=== PATIENT | female | born 1935 | race Caucasian/White ===

== ENCOUNTER 2018-05-22 19:16 | Emergency (ER) | payer MEDICARE ==
--- NOTE | 2018-05-22 21:41 | Emergency Department Record ---
History of Present Illness - General Chief complaint: Head Injury Stated complaint: HEAD INJURY/FALL Time Seen by Provider: 05/22/18 19:57 Source: Patient, Family Mode of Arrival: Ambulatory Limitations: No limitations Travel/Exposure to [facility] Within 21 Days of Symptoms: No - History of Present Illness Initial comments: 83 yo female presents with some intermittent headache since she fell out of bed about 20 hours prior to arrival. She was reaching for her light while in the dark in bed and fell to the floor hitting her head. No LOC. She has had some mild neck pain with looking down and some headache that comes and goes but is gone at this time. No confusion, dizziness, nausea, vomiting, weakness. She is not on any anticoagulants. No other injuries or complaints at this time. MD Complaint: Head injury, Head pain Onset/Timin -: Days(s) Mechanism of Injury: Mechanical fall Loss of Consciousness: No Previous Trauma to this Area: No Place: Home Radiation: None Severity: Mild Severity scale (1-10): 4 Quality: Aching Consistency: Intermittent Provoking factors: None known Other Injuries: None Associated Symptoms: Denies other symptoms - Related Data Home Medications Medication Instructions Recorded Confirmed Last Taken Naproxen Sodium [Aleve] 220 mg PO DAILY 05/22/18 05/22/18 Unknown Previous Rx's Medication Instructions Recorded Aspirin [Ecotrin] 325 mg PO DAILY #0 05/19/15 Allergies/Adverse reactions: Allergies Allergy/AdvReac Type Severity Reaction Status Date / Time sulfamethoxazole Allergy Mild HEADACHE Verified 03/28/15 14:49 trimethoprim [From Bactrim] Allergy Mild HEADACHE Verified 03/28/15 14:49 losartan potassium AdvReac Severe RAPID Verified 03/28/15 14:49 [From Cozaar] HEART RATE ibuprofen [From Motrin] AdvReac Unknown PT UNSURE Verified 03/28/15 14:49 OF REACTION Travel Screening - Travel/Exposure Within Last 30 Days Have you traveled within the last 30 days?: No - Travel Symptoms Symptom Screening: None Review of Systems Constitutional: Denies: Chills, Fever, Malaise, Weakness Eyes: Denies: Eye discharge, Eye pain, Photophobia, Vision change ENT: Denies: Congestion, Throat pain Respiratory: Denies: Cough, Dyspnea Cardiovascular: Denies: Chest pain, Edema, Palpitations, Syncope Endocrine: Denies: Fatigue Gastrointestinal: Denies: Abdominal pain, Diarrhea, Nausea, Vomiting Musculoskeletal: Reports: Neck pain. Denies: Arthralgia, Back pain, Joint swelling, Myalgia Skin: Denies: Bruising, Change in color, Rash Neurological: Reports: Headache. 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) Comment:: according to 05/19/15 CT scan - GI Hx GI Disorders: Yes Hx Reflux: Yes Comment:: stool sample positive for blood - Hx Genitourinary Disorders: No Comment:: Benign Kidney tumor removed - ENDOCRINE Hx Endocrine Disorders: No - MUSCULOSKELETAL Hx Musculoskeletal Disorders: Yes Hx Osteoporosis: Yes - PSYCH Hx Psych Problems: No - HEMATOLOGY/ONCOLOGY Hx Hematology/Oncology Disorders: Yes Hx Bruising: Yes (Recently changed medications) Hx Cancer: Yes (melanoma knee) Hx Chemotherapy: No Hx Radiation Therapy: No Hx Blood Transfusions: No Family Medical History Any Significant Family History?: Yes Hx Alcohol Use: Father Hx Anxiety: Mother Hx Cancer: Mother *Cancer Comment: Bowel cancer Hx Diabetes: Father Hx Heart Disease: Father, Mother Hx Stroke: Father, Mother, Grandparents Physical Exam - General General Appearance: Alert, Oriented x3, Cooperative, No acute distress Limitations: No limitations - Head Head exam: Atraumatic, Normal inspection Head exam detail: negative: Abrasion, Contusion, Hematoma - Eye Eye exam: Normal appearance, Other (Disconjugate gaze). negative: Conjunctival injection - ENT ENT exam: Normal exam, Mucous membranes moist Ear exam: Normal external inspection Nasal Exam: Normal inspection Mouth exam: Normal external inspection Teeth exam: Normal inspection - Neck Neck exam: Normal inspection, Full ROM, Other (No bony tenderness). negative: Lymphadenopathy, Tenderness - Respiratory Respiratory exam: Normal lung sounds bilaterally. negative: Respiratory distress, Rhonchi, Stridor, Wheezes - Cardiovascular Cardiovascular Exam: Regular rate, Normal rhythm, Normal heart sounds - GI/Abdominal GI/Abdominal exam: Soft. negative: Tenderness - Rectal Rectal exam: Deferred - exam: Deferred - Extremities Extremities exam: Normal inspection, Full ROM, Normal capillary refill. negative: Calf tenderness, Joint swelling, Pedal edema, Tenderness - Back Back exam: Denies: CVA tenderness (R), CVA tenderness (L), Paraspinal tenderness , Tenderness, Vertebral tenderness - Neurological Neurological exam: Alert, Normal gait, Oriented X3. negative: Abnormal gait - Psychiatric Psychiatric exam: Normal affect, Normal mood - Skin Skin exam: Dry, Intact, Normal color, Warm Course Vital Signs 05/22/18 05/22/18 19:38 19:52 Temperature 97.4 F L Pulse Rate [ 79 Pulse Ox Probe] Respiratory 16 Rate Blood Pressure 178/99 [Left Arm] Pulse Ox 100 - Reevaluation(s) Reevaluation #1: Vitals reviewed She is well appearing We discussed CT scan given the headache after the fall and the mild neck pain after the fall 05/22/18 21:[address] scan was reviewed Degenerative changes but no acute injury 05/22/18 21:[address] was negative 05/22/18 21:44 Disposition Disposition: Discharge Clinical Impression: Contusion of head Disposition: Home, Self-Care Condition: (1) Good Instructions: Concussion (ED) Additional Instructions: Return or be seen if you have headaches, dizziness, nausea or vomiting Follow up this ER visit with your doctor if you have an persistent pains or concerns Forms: Patient Portal Access Time of Disposition: 21:43 Quality - Quality Measures Quality Measures: N/A, Blunt Head Trauma (>2yr) - Genesis Coma Scale Genesis Coma Scale: [place] Coma Scale Eye Response: (4) Open spontaneously Motor Response: (6) Obeys commands Verbal Response: (5) Oriented [place] Total: 15 - Blunt Head Trauma - Adult Quality Measure: Measure #415: Utilization of CT for Minor Blunt Head Trauma ICD10 Codes Entered: Yes Was CT ordered: Yes Does Patient Have Any of the Following: No Exclusions Patient Presented Within 24 Hours of Injury: Yes [place] Score: [address] for Minor Blunt Head Trauma: < CT Done, Appropriate Indication > [G9529] Additional Inclusion Criteria: Within 24hrs (AND) GCS of 15 (AND) CT ordered. [ G9530] Indications For CT: Age 65 Years and Older - Blood Pressure Screening Does Patient Have Any of the Following: No Blood Pressure Classification: Pre-Hypertensive BP Reading Systolic Measurement: 152 Diastolic Measurement: 85 Screening for High Blood Pressure: < Pre-Hypertensive BP, F/U Documented > [ G8950] Pre-Hypertensive Follow-up Interventions: Referral to alternative/primary care provider.
--- NOTE | 2018-05-24 12:26 | CT SCAN REPORT ---
EXAM: CT OF THE HEAD WITHOUT IV CONTRAST HISTORY: FALL. TECHNIQUE: Helical CT scan of the brain was obtained without intravenous contrast. Comparison: CT of the head 05/18/15. Hand dominance: Unknown. FINDINGS: Moderate periventricular and deep white matter low density changes are again seen with slight progression in the interim. No evidence of hemorrhage, extraaxial fluid collection, or major vessel infarction. The martinez white matter differentiation is maintained. The ventricles are normal. The basal cisterns are patent. No mass effect or midline shift. The calvarium is intact. The paranasal sinuses and middle ear cavities are well aerated. IMPRESSION: NO ACUTE INTRACRANIAL ABNORMALITIES. THERE IS SLIGHT PROGRESSION OF THE MICROVASCULAR ISCHEMIC DISEASE SINCE THE 2015 EXAM. JOB NUMBER: [id number] MTDD
--- NOTE | 2018-05-24 12:30 | CT SCAN REPORT ---
EXAM: CT OF THE CERVICAL SPINE WITHOUT IV CONTRAST HISTORY: FALL. TECHNIQUE: Helical CT scan of the cervical spine was obtained without intravenous contrast. Comparison: None. Encounter: Initial. FINDINGS: Sagittal images show mild reversal of the cervical lordosis at C5-C6 and C6-C7. The vertebral body heights are maintained. There is no anterior or posterior listhesis. Severe disk space narrowing is present at C7-T1. Moderate disk space narrowing at C4-C5, C5-C6, and C6-C7. There are diskogenic osteophytes, but no significant neural foraminal narrowing. No prevertebral soft tissue swelling. The facet joints are aligned normally. The coronal images show a normal C1-C2 relationship. Axial images show no fractures. IMPRESSION: NO EVIDENCE FO FRACTURE OR MALALIGNMENT OF THE CERVICAL SPINE. MODERATE DEGENERATIVE CHANGES ARE NOTED. JOB NUMBER: [id number] MTDD
== END 2018-05-22 21:56 | disposition home or self-care (01) ==
LOC: ER 19:16
DX: S09.93XA Unspecified injury of face, initial encounter (principal); R51 Headache; M54.2 Cervicalgia; W06.XXXA Fall from bed, initial encounter; Y92.003 Bedroom of unspecified non-institutional (private) residence as the place of occurrence of the external cause; I10 Essential (primary) hypertension
CPT/HCPCS: 70450; 72125; 99283; 99284

== ENCOUNTER 2018-08-23 19:55 | Emergency (ER) | payer MEDICARE ==
--- NOTE | 2018-08-23 20:11 | Emergency Department Record ---
History of Present Illness - General Chief Complaint: General Stated Complaint: SHAKEY LEGS AND BALANCE OFF Time Seen by Provider: 08/23/18 19:59 Source: Patient, Family Mode of Arrival: Ambulatory Limitations: No limitations - History of Present Illness Initial Comments: 83 yo female presents with a few episodes the last two days of a vague feeling of dizziness. The first episode was last evening after dinner. She felt normal by bed time. The sensation was feeling weak and shaky on her feet. The symptoms lasted over about two hours. She vaguely felt weak this morning but then had a normal remainder of the day. Around 7pm she again felt weak like her legs were not strong. No weakness on one side or the other. No headache, speech changes, hearing changes, vision changes, neck pain, chest pain, palpitations, nausea or vomiting. She walked 3/4 of a mile yesterday without any difficulty. No new health changes. No new medications. PCP is Dr Null. Complaint: Dizziness -: Days(s) (2) Timing: Gradual onset Description: Difficulty walking History of Same: No History of Trauma: No Severity: Mild Improves With: Remaining still, Rest Worsens With: Movement Associated Symptoms: Denies other symptoms - Genesis Coma Scale Eye Response: (4) Open spontaneously Motor Response: (6) Obeys commands Verbal Response: (5) Oriented [place] Total: 15 - Related Data Previous Rx's Medication Instructions Recorded Aspirin [Ecotrin] 325 mg PO DAILY #0 05/19/15 Allergies Allergy/AdvReac Type Severity Reaction Status Date / Time sulfamethoxazole Allergy Mild HEADACHE Verified 03/28/15 14:49 trimethoprim [From Bactrim] Allergy Mild HEADACHE Verified 03/28/15 14:49 losartan potassium AdvReac Severe RAPID Verified 03/28/15 14:49 [From Cozaar] HEART RATE ibuprofen [From Motrin] AdvReac Unknown PT UNSURE Verified 03/28/15 14:49 OF REACTION Review of Systems Constitutional: Reports: Weakness. Denies: Chills, Fever, Malaise, Night sweats Eyes: Denies: Eye discharge, Eye pain, Photophobia, Vision change ENT: Denies: Congestion, Dental pain, Epistaxis, Throat pain Respiratory: Denies: Cough, Dyspnea, Hemoptysis, Wheezes Cardiovascular: Denies: Chest pain, Dyspnea on exertion, Edema, Palpitations, Syncope Endocrine: Denies: Fatigue, Polydipsia, Polyuria Gastrointestinal: Denies: Abdominal pain, Diarrhea, Nausea, Vomiting Genitourinary: Denies: Dysuria, Retention, Urgency Musculoskeletal: Denies: Arthralgia, Back pain, Joint swelling, Myalgia Skin: Denies: Bruising, Change in color, Rash Neurological: Reports: As per HPI, Abnormal gait, Tingling (tumb on the right for a few "seconds"), Vertigo, Weakness. Denies: Confusion, Headache, Numbness , Paresthesias, Seizure, Tremors Psychiatric: Reports: Anxiety (The symptoms make her feel very anxious) Hematological/Lymphatic: Denies: Anemia, Blood Clots, Easy bleeding, Easy bruising, Swollen glands Past Medical History - SOCIAL HISTORY Smoking Status: Never smoker - RESPIRATORY Hx Respiratory Disorders: No - CARDIOVASCULAR Hx Cardio Disorders: Yes Hx Abnormal EKG: Yes Hx Cardiac Cath: Yes (Believes over 5yrs ago) Hx Heart Attack: No Hx Hypertension: Yes Hx Irregular Heartbeat: Yes ("not a-fib") Hx Palpitations: No Comment:: Vericose veins - NEURO Hx Neuro Disorders: Yes 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) Comment:: according to 05/19/15 CT scan - GI Hx GI Disorders: Yes Hx Reflux: Yes Comment:: stool sample positive for blood - Hx Genitourinary Disorders: No Comment:: Benign Kidney tumor removed - ENDOCRINE Hx Endocrine Disorders: No - MUSCULOSKELETAL Hx Musculoskeletal Disorders: Yes Hx Osteoporosis: Yes - PSYCH Hx Psych Problems: No - HEMATOLOGY/ONCOLOGY Hx Hematology/Oncology Disorders: Yes Hx Bruising: Yes (Recently changed medications) Hx Cancer: Yes (melanoma knee) Hx Chemotherapy: No Hx Radiation Therapy: No Hx Blood Transfusions: No Family Medical History Hx Alcohol Use: Father Hx Anxiety: Mother Hx Cancer: Mother *Cancer Comment: Bowel cancer Hx Diabetes: Father Hx Heart Disease: Father, Mother Hx Stroke: Father, Mother, Grandparents Physical Exam - General General Appearance: Alert, Oriented x3, Cooperative, No acute distress Limitations: No limitations - Head Head exam: Atraumatic, Normocephalic, Normal inspection Head exam detail: negative: Abrasion, Contusion, Hematoma, Laceration - Eye Eye exam: Normal appearance, PERRL, EOMI, Other (Baseline disconjugate gaze, normal). negative: Conjunctival injection, Nystagmus, Periorbital swelling, Periorbital tenderness, Scleral icterus Pupils: Normal accommodation. negative: Irregular, Miosis, Unequal - ENT ENT exam: Normal exam, Mucous membranes moist, Normal orophraynx, TM's normal bilaterally Ear exam: Normal external inspection Nasal Exam: Normal inspection Mouth exam: Normal external inspection Teeth exam: Normal inspection Throat exam: Normal inspection - Neck Neck exam: Normal inspection, Full ROM. negative: Lymphadenopathy, Tenderness - Respiratory Respiratory exam: Normal lung sounds bilaterally. negative: Respiratory distress, Rhonchi, Stridor, Wheezes - Cardiovascular Cardiovascular Exam: Regular rate, Normal rhythm, Normal heart sounds. negative : Diastolic murmur, Systolic murmur, Tachycardia Peripheral Pulses: 2+: Radial (R), Radial (L) - GI/Abdominal GI/Abdominal exam: Soft. negative: Tenderness - Rectal Rectal exam: Deferred - exam: Deferred - Extremities Extremities exam: Normal inspection, Full ROM, Normal capillary refill. negative: Calf tenderness, Joint swelling, Pedal edema, Tenderness - Back Back exam: Denies: CVA tenderness (R), CVA tenderness (L) - Neurological Neurological exam: Alert, CN II-XII intact, Oriented X3, Reflexes normal, Other (Normal finger to nose, normal tracking, no ataxia, symmetric strength, no PND upper or lower). negative: Altered, Motor sensory deficit - Psychiatric Psychiatric exam: Normal affect, Normal mood. negative: Agitated, Anxious - Skin Skin exam: Dry, Intact, Normal color, Warm Course Vital Signs 08/23/18 20:01 Temperature 97.6 F Pulse Rate [ 92 H Pulse Ox Probe] Respiratory 20 Rate Blood Pressure 163/92 [Left Arm] Pulse Ox 99 - Reevaluation(s) Reevaluation #1: EKG 20:09 NSR rate is 80 Intervals Normal [place] L ST no acute changes, LVH criteria NIH is 0 08/23/18 20:23 The EMR was reviewed. 2014 she was admitted for 10 minutes of confusion. MRI at that time was negative for acute CVA. 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 08/23/18 20:45 08/23/18 20:55 The CBC and CMP were reviewed. No significant changes. The Troponin is normal 08/23/18 20:57 The patient was ambulatory to the restroom without limitation. 08/23/18 21:13 The HCT was negative for any acute process or changes from the prior 08/23/18 21:14 The UA is negative for any infection or acute changes 08/23/18 21:22 The patient is ambulating at baseline. NIH is 0. No objective signs of acute neurologic event She has follow up tomorrow already scheduled. She was offered OBV but prefers to go home and see her doctor tomorrow She was given home care instructions and reasons to return to the ER immediately. Medical Decision Making - Lab Data Result diagrams: 08/23/18 20:25 08/23/18 20:25 Disposition Disposition: Discharge Clinical Impression: Dizziness Disposition: Home, Self-Care Condition: (1) Good Instructions: Dizziness (ED) Additional Instructions: Follow up as scheduled tomorrow with Dr Tennille Mccall if your symptoms sudden return or worsen I recommend if you get up in the night to walk with assistance Forms: Patient Portal Access Time of Disposition: 21:24 Quality - Quality Measures Quality Measures: N/A - Blood Pressure Screening Does Patient Have Any of the Following: Active Dx of HTN Blood Pressure Classification: Hypertensive Reading Systolic Measurement: 154 Diastolic Measurement: 90 Screening for High Blood Pressure: Patient Exclusion, Hx of HTN [G9744]
[2018-08-23 20:32] LABS: HEMATOCRIT 37.5 % (35.0-47.0); HEMOGLOBIN 12.3 gm/dl (11.6-16.0); MEAN CELL VOLUME 93.3 fl (81-97); MEAN CORPUSCULAR HEMOGLOBIN 30.6 pg (27-33); MEAN CORPUSCULAR HGB CONC 32.8 g/dl (32-36); MEAN PLATELET VOLUME 9.9 fl (7.4-10.4); PLATELET COUNT 244 K/uL (130-400); RED BLOOD COUNT 4.02 M/uL (3.80-5.40); RED CELL DISTRIBUTION WIDTH 12.7 % (11.5-14.5); WHITE BLOOD COUNT W/O DIFF 4.7 K/uL (4.2-12.2)
[2018-08-23 20:41] LABS: BLOOD UREA NITROGEN 22 mg/dL (8-23); CREATININE 0.6 mg/dL (0.5-0.9); EST GLOMERULAR FILTRATION RATE > 60 mL/min
[2018-08-23 20:42] LABS: TOTAL PROTEIN 7.3 g/dL (6.6-8.7)
[2018-08-23 20:44] LABS: GLUCOSE,RANDOM 86 mg/dL (74-109)
[2018-08-23 20:47] LABS: ALB/GLOB RATIO 1.5 (1.1-1.8); ALBUMIN 4.4 g/dL (4.0-5.0); ALKALINE PHOSPHATASE 85 U/L (35-104); ALT/SGPT 51 U/L (<33); AST/SGOT 41 U/L (10.0-35.0)
[2018-08-23 20:51] LABS: PLATELET ESTIMATE NORMAL (NORMAL)
[2018-08-23 21:08] LABS: URINE APPEARANCE SL CLOUDY; URINE BILIRUBIN NEGATIVE (NEGATIVE); URINE BLOOD NEGATIVE (NEGATIVE); URINE COLOR YELLOW; URINE GLUCOSE (UA) NEGATIVE (NEGATIVE); URINE KETONE NEGATIVE (NEGATIVE); URINE LEUKOCYTE ESTERASE NEGATIVE (NEGATIVE); URINE NITRITE NEGATIVE (NEGATIVE); URINE PROTEIN NEGATIVE (NEGATIVE); URINE UROBILINOGEN 0.2 E.U./dL (0.20 - 1.00)
== END 2018-08-23 21:38 | disposition home or self-care (01) ==
LOC: ER 19:55
DX: R42 Dizziness and giddiness (principal); R53.1 Weakness; R26.2 Difficulty in walking, not elsewhere classified; R20.2 Paresthesia of skin; I10 Essential (primary) hypertension
CPT/HCPCS: 70450; 80053; 81003; 84484; 85027; 93005; 93010; 99284